=== PATIENT | male | born 1965 | race Caucasian/White ===

== ENCOUNTER 2020-10-12 00:34 | Observation (INO) | payer BC ==
[~2020-10-12] VITALS: Ht 167.6 cm; Wt 108.9 kg
[2020-10-12 01:56] LABS: HEMOGLOBIN 15.4 gm/dl (14.0-17.5); RED BLOOD COUNT 5.36 M/UL (4.20-5.50); WHITE BLOOD COUNT 9.3 K/UL (4.5-11.0)
[2020-10-12 01:57] LABS: BUN/CREATININE RATIO 12 (0-10)
[2020-10-12] MEDS ORDERED: ATORVASTATIN CA20 MG PO (05:05)
[2020-10-12] MEDS ORDERED: LOPRESSOR 25 MG25 MG PO (05:05)
[2020-10-12] MEDS ORDERED: FAMOTIDINE20 MG PO (05:06)
[2020-10-12] MEDS ORDERED: ASPIRIN325 MG PO (05:07)
[2020-10-12] MEDS ORDERED: ARNUITY ELLIPT50 MCG INH (05:08)
[2020-10-13 06:28] LABS: HEMOGLOBIN 17.2 gm/dl (14.0-17.5); RED BLOOD COUNT 5.67 M/UL (4.20-5.50); WHITE BLOOD COUNT 9.4 K/UL (4.5-11.0)
[2020-10-13 07:13] LABS: BUN/CREATININE RATIO 18 (0-10)
[2020-10-13] MEDS ORDERED: ATORVASTATIN CA20 MG PO (19:59)
[2020-10-13] MEDS ORDERED: ASPIRIN EC81 MG PO (19:59)
[2020-10-13] MEDS ORDERED: NITROGLYCERIN0.4 MG SL (19:59)
== END 2020-10-13 20:30 | disposition home or self-care (01) ==
LOC: ER1 00:34 → MED SURG 4 02:43 → CDU 02:43 → MED SURG 4 04:07
PROVIDERS: Internal Medicine; Physician Assistant; ADMIT Internal Medicine
DX: R07.89 Other chest pain (principal); I25.10 Atherosclerotic heart disease of native coronary artery without angina pectoris; I10 Essential (primary) hypertension; E78.5 Hyperlipidemia, unspecified; R60.9 Edema, unspecified; K21.9 Gastro-esophageal reflux disease without esophagitis; Z95.5 Presence of coronary angioplasty implant and graft; Z79.82 Long term (current) use of aspirin; Z79.899 Other long term (current) drug therapy; Z20.822 Contact with and (suspected) exposure to COVID-19
CPT/HCPCS: ECHO; 36415; 71045; 78452; 80053; 82550; 82553; 83874; 84484; 85025; 85027; 93005; 93017; 93306; 96372; 99285; A9502; G0378; J1650; U0002